=== PATIENT | female | born 1950 | race Caucasian/White ===

== ENCOUNTER 2018-04-07 10:55 | Observation (INO) ==
[2018-04-07] MEDS ORDERED: Bisacodyl 10 MG Supp RECTAL PRN (15:52)
[2018-04-07] MEDS ORDERED: Acetaminophen 325 MG Tablet PO PRN (15:52)
--- NOTE | 2018-04-07 17:00 | P.HP ---
History of Present Illness Primary Care Physician: UNKNOWN Chief Complaint: Chest pain, shortness of breath, dyspnea on exertion, nausea, diaphoresis History of Present Illness: 67-year-old female with known history of hypertension, hyperlipidemia, history of necrotizing pancreatitis who presented to the hospital for evaluation of multiple symptoms to include chest discomfort, shortness of breath, dyspnea on exertion, nausea, diaphoresis. Patient is followed by chin strap sewer over in [place]. Dr. Freddy Jaramillo, she did have an appointment to see him however there is a mix up and she was unable to see him today. It has been approximately 2 years since she has seen her [facility] strap sewer. Did make an appointment with him because over the last 6 months she has been having intermittent symptoms to include chest discomfort in the mid part of the chest without any radiation to the neck, back, shoulder, arm. Patient has been experiencing dyspnea with dyspnea on exertion. Patient has been experiencing nausea with diaphoresis. Patient indicates that all of her symptoms resolve whenever she lays down and rest. The patient took her mother to the emergency department while she was there she developed some nausea with diaphoresis, because of those symptoms she had evaluation done emergency department. Because of the patient's clinical history and no significant findings the ER physician recommended the patient be observed in the chest pain center for further evaluation and management. - Diagnosis (1) Chest pain, rule out acute myocardial infarction (2) Acute hypokalemia Review of Systems All other systems reviewed negative except as stated in HPI Constitutional: Reports excessive sweating Cardiovascular: Reports chest pain, Reports shortness of breath, Reports shortness of breath with activity Gastrointestinal: Reports abdominal pain, Reports nausea PMFSH - History History Provided By: Patient - Medical History Medical History: Medical History (Last Updated 04/07/18 @ 16:54 by SHIRA Pinto) Necrotizing pancreatitis COPD (chronic obstructive pulmonary disease) GERD (gastroesophageal reflux disease) High cholesterol Hypertension Pancreatitis, recurrent Sepsis Thyroid disease - Surgical History Surgical History: Surgical History (Last Updated 04/07/18 @ 16:55 by SHIRA Pinto) History of cardiac catheterization History of hysterectomy History of partial pancreatectomy Hx of appendectomy - Family History Family History: Family History (Last Updated 04/07/18 @ 16:56 by SHIRA Pinto) Father History of heart disease Mother History of colon cancer - Tobacco History Second Hand Smoke Exposure: No Smoking Status: Never smoker - Alcohol History How Often Do You Have a Drink Containing Alcohol: Never - Substance Use History Substance History: No History of Abuse Medications and Allergies Active Medications: Active Medications Acetaminophen (Tylenol) 650 mg PO Q4H PRN PRN Reason: Headache, fever, pain 1-5 Al Hydroxide/Mg Hydroxide (Milk Of Magnesia Liq) 30 ml PO Q12H PRN PRN Reason: Mild Constipation Bisacodyl (Dulcolax Supp) 10 mg RECTAL DAILY PRN PRN Reason: SEVERE CONSITIPATION Lactulose (Lactulose Liq) 30 ml PO DAILY PRN PRN Reason: SEVERE CONSITIPATION Ondansetron HCl (Zofran Inj) 4 mg IV.PUSH Q6H PRN PRN Reason: NAUSEA OR VOMITING Sennosides (Senokot) 17.2 mg PO Q12H PRN PRN Reason: Moderate Constipation Allergies Allergy/AdvReac Type Severity Reaction Status Date / Time No Known Allergies Allergy Verified 04/07/18 11:42 Home Medications Medication Instructions Recorded Confirmed Type bupropion HCl [Wellbutrin XL] 04/07/18 History buspirone 10 mg PO BID 04/07/18 04/07/18 History cetirizine [Zyrtec] 10 mg PO DAILY 04/07/18 04/07/18 History diltiazem HCl [DILT-XR] 180 mg PO DAILY 04/07/18 04/07/18 History hydrochlorothiazide 25 mg PO DAILY 04/07/18 04/07/18 History levothyroxine 100 mcg PO DAILY 04/07/18 04/07/18 History nyspoj-[id number]-abaopsz [Creon] 2 cap PO QID 04/07/18 04/07/18 History potassium chloride [Klor-Con 10] 10 meq PO DAILY 04/07/18 04/07/18 History trazodone 150 mg PO DAILY 04/07/18 04/07/18 History triamterene 17.5 mg PO BID 04/07/18 04/07/18 History Exam Narrative: GENERAL: Well-developed, well-nourished, in no acute distress. alert and orientated HEENT: Head is normocephalic without any lesions or masses noted. Facial features are symmetric. Eyes: Pupils equal round reactive to light. Extraocular muscles are intact. Conjunctivae were clear. Oropharyngeal: Pharynx without any erythema edema. Tongue is midline without deviation. Buccal mucosa is moist without any masses or lesions NECK: Supple without any masses. Trachea midline no deviation. No JVD, no bruits are appreciated CARDIAC: Regular rhythm, regular rate. S1/S2 are heard. No murmurs gallops or rubs. LUNGS: Clear to auscultation bilaterally. No wheeze, rhonchi or rales. No use of accessory muscles on inspiration or expiration. ABDOMEN: Soft, nontender. Nondistended. Bowel sounds heard in all 4 quadrants. No organomegaly or masses. Negative rebound, negative guarding EXTREMITIES: No edema, pulses are equal bilaterally. No cyanosis or clubbing NEUROLOGY: Mood and affect appear appropriate. Cranial nerves II through XII grossly intact. Muscle strength 5/5 in upper and lower extremities bilaterally. Deep tendon reflexes are 2+ in upper and lower extremities bilaterally. Caprini VTE Risk Assessment Caprini VTE Risk Assessment: Moderate/High Risk (score >= 2) Caprini Risk Assessment Model: Point Value = 1 Point Value = 2 Point Value = 3 Point Value = 5 Age 41-60 Minor surgery BMI > 25 kg/m2 Swollen legs Varicose veins or History of unexplained or recurrent spontaneous Oral contraceptives or hormone replacement Sepsis (< 1 month) Serious lung disease, including pneumonia (< 1 month) Abnormal pulmonary function Acute myocardial infarction Congestive heart failure (< 1 month) History of inflammatory bowel disease Medical patient at bed rest Age 61-74 Arthroscopic surgery Major open surgery (> 45 min) Laparoscopic surgery (> 45 min) Malignancy Confined to bed (> 72 hours) Immobilizing plaster cast Central venous access Age >= 75 History of VTE Family history of VTE Factor V Leiden Prothrombin [id number] Lupus anticoagulant Anticardiolipin antibodies Elevated serum homocysteine Heparin-induced thrombocytopenia Other congenital or acquired thrombophilia Stroke (< 1 month) Elective arthroplasty Hip, pelvis, or leg fracture Acute spinal cord injury (< 1 month) Prophylaxis Regimen: Total Risk Factor Score Risk Level Prophylaxis Regimen 0-1 Low Early ambulation 2 Moderate Order ONE of the following: *Sequential Compression Device (SCD) *Heparin 5000 units SQ BID 3-4 Higher Order ONE of the following medications: *Heparin 5000 units SQ TID *Enoxaparin/Lovenox 40 mg SQ daily (WT < 150 kg, CrCl > 30 mL/min) *Enoxaparin/Lovenox 30 mg SQ daily (WT < 150 kg, CrCl > 10-29 mL/min) *Enoxaparin/Lovenox 30 mg SQ BID (WT < 150 kg, CrCl > 30 mL/min) AND/OR *Sequential Compression Device (SCD) 5 or more Highest Order ONE of the following medications: *Heparin 5000 units SQ TID (Preferred with Epidurals) *Enoxaparin/Lovenox 40 mg SQ daily (WT < 150 kg, CrCl > 30 mL/min) *Enoxaparin/Lovenox 30 mg SQ daily (WT < 150 kg, CrCl > 10-29 mL/min) *Enoxaparin/Lovenox 30 mg SQ BID (WT < 150 kg, CrCl > 30 mL/min) AND *Sequential Compression Device (SCD) Assessment and Plan - Assessment (1) Chest pain, rule out acute myocardial infarction Code(s): R07.9 - Chest pain, unspecified Status: Acute (2) Acute hypokalemia Code(s): E87.6 - Hypokalemia Status: Acute - Plan Chest pain, atypical -Patient with increased risk factors include age, hypertension, hyperlipidemia, family history of heart disease -Patient has been ruled out for acute coronary syndrome with serial cardiac enzymes that are negative -Serial EKGs reviewed by myself which shows sinus rhythm without any changes -Anticipate performing myocardial perfusion study in the morning -Continue aspirin Hypertension, hyperlipidemia -Continue home medications Hypokalemia -Continue monitor and replete as needed DVT prevention -Sequential compression devices
[2018-04-07] MEDS ORDERED: Benzonatate 100 MG Capsule PO PRN (21:58)
[2018-04-07] MEDS ORDERED: Melatonin 5 MG Tablet PO PRN (21:58)
--- NOTE | 2018-04-08 07:26 | P.PN ---
Subjective Interval history: 67-year-old female who is seen and examined today in follow-up for chest discomfort, diaphoresis. Patient states that she has not had any recurrent episodes since being in the hospital. Notified her of all the test results, EKGs. Vital signs appear to be stable. Patient remains afebrile. Physical Exam Vital signs: Vital Signs 04/07/18 18:00 04/07/18 20:00 04/08/18 00:00 Temperature 97.4 F L 97.4 F L 97.6 F Pulse Rate 80 87 78 Respiratory Rate 20 16 16 Blood Pressure 124/60 119/58 L 127/58 L Pulse Oximetry 96 95 96 04/08/18 04:00 Temperature 98.0 F Pulse Rate 64 Respiratory Rate 16 Blood Pressure 125/64 Pulse Oximetry 98 Intake & Output 04/07/18 04/08/18 04/08/18 18:59 06:59 18:59 Intake Total 240 / 240 Output Total 400 / 400 Balance -160 / -160 Weight 79.5 kg Intake: Oral 240 / 240 Output: Urine 400 / 400 Stool 0 / 0 Other: # Voids 2 Date of Last Bowel Movement 04/07/18 04/07/18 Narrative: GENERAL: Well-developed, well-nourished, in no acute distress. alert and orientated HEENT: Head is normocephalic without any lesions or masses noted. Facial features are symmetric. Eyes: Extraocular muscles are intact. Conjunctivae were clear. NECK: Supple without any masses. Trachea midline no deviation. No JVD, CARDIAC: Regular rhythm, regular rate. S1/S2 are heard. No murmurs gallops or rubs. LUNGS: Clear to auscultation bilaterally. No wheeze, rhonchi or rales. No use of accessory muscles on inspiration or expiration. ABDOMEN: Soft, nontender. Nondistended. Bowel sounds heard in all 4 quadrants. No organomegaly or masses. Negative rebound, negative guarding EXTREMITIES: No edema, pulses are equal bilaterally. No cyanosis or clubbing NEUROLOGY: Mood and affect appear appropriate. Cranial nerves II through XII grossly intact. Moving all extremities, speech is clear Results - Labs Laboratory Results - last 24 hr 04/07/18 04/07/18 04/07/18 16:20 17:45 22:10 D-Dimer Quant (PE/DVT) 0.47 Troponin I Less than 0.02 L Less than 0.02 L Assessment and Plan - Assessment (1) Chest pain, rule out acute myocardial infarction Code(s): R07.9 - Chest pain, unspecified Status: Inactive (2) Acute hypokalemia Code(s): E87.6 - Hypokalemia Status: Inactive - Plan Chest pain, atypical -Patient with increased risk factors include age, hypertension, hyperlipidemia, family history of heart disease -Patient has been ruled out for acute coronary syndrome with serial cardiac enzymes that are negative -Serial EKGs reviewed by myself which shows sinus rhythm without any changes -Myocardial perfusion study was performed and indicated normal examination, no signs of ischemia, low risk -Lipid panel -Continue aspirin Hypertension, hyperlipidemia -Continue home medications Hypokalemia -Continue monitor and replete as needed DVT prevention -Sequential compression devices Discharge Planning: Discharge home in stable condition Activity: Ad ivet. Diet: Healthy heart diet Medication per medication reconciliation Follow-up with primary medical doctor in 1 week
[2018-04-08] MEDS ORDERED: Regadenoson Inj 0.4 MG/5 ML Syringe IV.PUSH ONE (08:38)
[2018-04-08] MEDS ORDERED: Aluminum/Magnesium/Simethacone Susp 30 ML UDC PO PRN (09:49)
--- NOTE | 2018-04-08 09:58 | NM ---
EXAM DATE: 04/08/2018 9:44 AM EDT AGE/SEX: 67 years / Female INDICATIONS:Angina. . Substernal chest pain with dyspnea and nausea. CLINICAL DATA: This is the patient's initial encounter. Patient reports that signs and symptoms have been present for 1 day and indicates a pain score of 5/10. MEDICAL/SURGICAL HISTORY: Hypertension. Pancreatitis. Gastroesophageal reflux disease. Hyster ectomy. Appendectomy. COMPARISON: No prior exams available for comparison. DOSE: 8.5 mCi Tc 99m Myoview at rest 25.4 mCi [id number] at stress 0.4 mg Lexiscan STRESS SYMPTOMS: Dyspnea, nausea, stomach pressure, chest pressure and shaky. EJECTION FRACTION: >70 % TECHNIQUE: The patient underwent pharmacologic stress with infusion of prescribed dose. Continuous ECG tracing was monitored during stress. Gated SPECT imaging was performed after stress and conventi onal SPECT imaging was performed at rest. The examination was performed on a SPECT/CT scanner, both attenuation and non-corrected datasets were reviewed. FINDINGS: Distribution: The maximum perfused segment at stress is in the inferior wall. Perfusion Study: The pattern of perfusion at stress is within normal limits. Gated Study: There are intact wall motion and wall thickening without hypokinetic or dyskinetic segm ents. The ejection fraction is calculated at >70%. RISK CATEGORY: Low (<1% Annual Motality Rate) CONCLUSION: 1. Negative examination. Electronically signed by: Alberto Acevedo MD 04/08/2018 9:56 AM EDT
--- NOTE | 2018-04-08 10:45 | TR ---
Date Performed: 04/08/2018 Time Performed: 08:58:24 DOCTOR: Antelmo Dickens DRUG LIST: CLINICAL HISTORY: REASON FOR TEST: Chest pain REASON FOR ENDING: OBSERVATION: CONCLUSION: COMMENTS: Lexiscan stress test was performed under standard four minute protocol. Radionuclide was injected one minute prior to ending the test. No electrocardiographic abormalities were present t o suggest ischemia. Nuclear imaging and interpretation are pending.
[2018-04-08 11:01] LABS: Chol/HDL Ratio 2.38 Ratio; HDL Cholesterol 55.7 mg/dL (40.0-60.0)
== END 2018-04-08 11:55 | disposition home or self-care (01) ==
LOC: NEDDLT 15:31 → PH3 15:31
PROVIDERS: ADMIT Hospitalist; ATTEND Hospitalist
DX: E07.9 Disorder of thyroid, unspecified; Z79.899 Other long term (current) drug therapy; E78.00 Pure hypercholesterolemia, unspecified; E87.6 Hypokalemia; Z90.710 Acquired absence of both cervix and uterus; R07.9 Chest pain, unspecified; J44.9 Chronic obstructive pulmonary disease, unspecified; R82.90 Unspecified abnormal findings in urine; I10 Essential (primary) hypertension; K21.9 Gastro-esophageal reflux disease without esophagitis; Z86.718 Personal history of other venous thrombosis and embolism; E78.5 Hyperlipidemia, unspecified; Z82.49 Family history of ischemic heart disease and other diseases of the circulatory system; K85.90 Acute pancreatitis without necrosis or infection, unspecified